=== PATIENT | male | born 1940 | race Caucasian/White ===

== ENCOUNTER 2024-11-27 18:42 | Emergency (ER) | payer MEDICAID, MEDICARE ==
[2024-11-27 19:13] LABS: Hematocrit 28.8 % (42.0-52.0); Hemoglobin 10.7 g/dL (14.0-18.0); Mean Corpuscular Hemoglobin 32.1 pg (27.0-31.0); Mean Corpuscular Volume 86.5 fl (78.0-98.0); Platelet Count 321 10x3/uL (130-400); Red Blood Cell (RBC) Count 3.33 mill/uL (4.70-6.10); White Blood Cell (WBC) Count 24.0 10x3/uL (4.8-10.8)
[2024-11-27 19:15] LABS: Bicarbonate (HCO3v) 22.3 mmol/L (22.0-28.0); CO2 Tension (PvCO2) 29.3 mmHg (42.0-51.0); Chloride 106 mmol/L (98-107); Hemoglobin - Calc 10.4 g/dL (14.0-18.0); Potassium 3.2 mmol/L (3.5-5.1); Sodium 137 mmol/L (138-145); vO2 Saturation-calc 88.8 % (60.0-85.0)
[2024-11-27 19:16] LABS: Calcium, Ionized 1.13 mmol/L (1.15-1.33); T. Carbon Dioxide 23.2 mmol/L (22.0-28.0)
[2024-11-27 19:22] LABS: ALT (SGPT) 8 U/L (Less than 45); AST (SGOT) 19 U/L (11-34); Albumin 2.4 g/dL (3.1-4.5); Alkaline Phosphatase 91 U/L (40-110); Anion Gap 16 mmol/L (10-20); BUN (Urea Nitrogen) 31 mg/dL (8.4-25.7); Bilirubin, Total 0.9 mg/dL (0.3-1.2); Calc. Creatinine Clearance 0 mL/min (70-130); Calcium 8.4 mg/dL (7.8-10.44); Carbon Dioxide 20 mmol/L (23-31); Chloride 106 mmol/L (98-107); Globulin 4.1 g/dL (2.4-3.5); Glucose 107 mg/dL (83-110); Potassium 3.3 mmol/L (3.5-5.1); Sodium 139 mmol/L (136-145)
[2024-11-27] MEDS ORDERED: cefTRIAXone (ROCEPHIN) 2 GM VIAL ONE (19:28)
[2024-11-27 19:32] LABS: Glucose, Urine (Dipstick) Negative (Negative); Leukocyte Large (Negative); Protein, Urine (Dipstick) > or equal to 300 mg/dL (Neg-Trace); Specific Gravity, Urine 1.015 (1.005-1.030)
[2024-11-27 19:48] LABS: MDiff Complete? YES
[2024-11-27 19:51] LABS: Bacteria/HPF 4+ HPF (None Seen); CAUTI Indications for Culture Fever or rigors; RBC/HPF 0-3 HPF (0-3)
[2024-11-27 19:53] LABS: Urine Culture Reflex Yes Yes
[2024-11-27] MEDS ORDERED: Vancomycin HCl 1.5 GM VIAL ONE (21:49)
== END 2024-11-27 23:01 | disposition short-term general hospital (02) ==
LOC: BURERS 18:42
DX: A41.9 Sepsis, unspecified organism (principal); J18.1 Lobar pneumonia, unspecified organism; N39.0 Urinary tract infection, site not specified; R63.8 Other symptoms and signs concerning food and fluid intake; E11.22 Type 2 diabetes mellitus with diabetic chronic kidney disease; N18.30 Chronic kidney disease, stage 3 unspecified; K21.9 Gastro-esophageal reflux disease without esophagitis; I48.91 Unspecified atrial fibrillation; E78.5 Hyperlipidemia, unspecified; E11.42 Type 2 diabetes mellitus with diabetic polyneuropathy; Z79.84 Long term (current) use of oral hypoglycemic drugs; Z79.01 Long term (current) use of anticoagulants; Z79.82 Long term (current) use of aspirin; Z79.899 Other long term (current) drug therapy; Z79.4 Long term (current) use of insulin
CPT/HCPCS: 71045; 80053; 81001; 82330; 82435; 82803; 83605; 84132; 84295; 85014; 85025; 87040; 87077; 87086; 87149; 87426; 93005; 94760; 96365; 96367; J0696